=== PATIENT | female | born 1985 | race Caucasian/White ===

== ENCOUNTER 2023-11-10 02:04 | Emergency (ER) | payer SELFPAY ==
[2023-11-10 03:26] LABS: Absolute Lymphocytes (CBC) 0.6 K/uL (0.7-4.9); Absolute Monocytes 0.4 K/uL (0.1-1.3); Absolute Neutrophil 2.8 K/uL (1.8-8.0); Basophils % 0.7 % (0-1.3); Hematocrit 36.1 % (36.0-45.0); Hemoglobin 11.6 g/dL (12.0-15.0); MCH 25.6 pg (27.0-35.0); MCHC 32.1 g/dL (32.0-36.0); MCV 79.7 fL (80-100); Monocytes % 9.8 % (3.3-12.3); Neutrophils % 73.5 % (41.7-73.7); Platelets 317 thou/uL (152-406); RBC Red Blood Cell Count 4.53 M/uL (3.86-4.86); Red Cell Distribution Width 18.2 % (12.1-15.2)
[2023-11-10] MEDS ORDERED: LIDOCAINE 1% 20 ML MDV ONE (03:37)
[2023-11-10] MEDS ORDERED: THIAMINE 200 MG/2 ML INJ ONE (03:37)
[2023-11-10] MEDS ORDERED: MULTIVITAMINS 10 ML VIAL (INJ) IV ONE (03:37)
[2023-11-10] MEDS ORDERED: FOLIC ACID 5 MG/ML VIAL ONE (03:38)
[2023-11-10] MEDS ORDERED: NA CHLORIDE 0.9% 1,000 ML ONE (03:39)
[2023-11-10 03:45] LABS: Albumin 3.8 g/dL (3.4-5.0); Albumin/Globulin Ratio 0.9 (1.1-1.8); Bilirubin Total 0.3 mg/dL (0.2-1.0); Globulin 4.3 g/dL (2.3-3.5); Protein, Total 8.1 g/dL (6.4-8.2)
[2023-11-10 04:32] LABS: Specific Gravity 1.025 (1.005-1.030)
[2023-11-10 04:34] LABS: Specific Gravity 1.025 (1.005-1.030); Sqamous Epithelial <5 /HPF (None Seen); Urine Bacteria None Seen /HPF (<20); Urine Bilirubin NEGATIVE (Negative); Urine Blood 2+ (Negative); Urine Clarity Clear (Clear); Urine Color Light-Yellow (Yellow); Urine Culture Reflex Order NOT NEEDED; Urine Glucose TRACE (Negative); Urine Ketones 3+ (Negative); Urine Microscopic Reflex YN ORDER UMIC; Urine Mucus Slight /HPF (None Seen); Urine Nitrite NEGATIVE (Negative); Urine Protein 2+ (Negative); Urine Urobilinogen Normal (Normal); Urine WBC <5 /HPF (<5)
[2023-11-10 04:43] LABS: Barbiturates NEGATIVE (NEGATIVE); Benzodiazepines NEGATIVE (NEGATIVE); Cocaine NEGATIVE (NEGATIVE); METHAMPHETAM NEGATIVE (NEGATIVE); Methadone NEGATIVE (NEGATIVE); Opiates NEGATIVE (NEGATIVE); Phencyclidine NEGATIVE (NEGATIVE); THC Cannibis NEGATIVE (NEGATIVE)
--- NOTE | 2023-11-10 05:38 | ER ---
[facility] Name: Ana Lilia Felix Age: 38 yrs Sex: Female : 1985 Arrival Date: 11/10/2023 Time: 02:04 Bed 18 Private MD: Diagnosis: Laceration without foreign body of left hand, initial encounter;Abnormal uterine and vaginal bleeding, unspecified;Dysfunctional uterine bleeding, alcohol intoxication, insomnia, acute fall with laceration of the left hand. Presentation: 11/09 02:32 Chief complaint: Patient states: I have been heavily drinking for more than a month. A jb4 bottle of wine a day. I have been having vaginal bleeding for over a month and I think I had a miscarriage. I fell through a glass table tonight cutting my left wrist. Coronavirus screen: At this time, the client does not indicate any symptoms associated with coronavirus-19. Ebola Screen: No symptoms or risks identified at this time. Complicating Factors: There are no complicating factors for this patient. Initial Sepsis Screen: Does the patient meet any 2 criteria? No. Patient's initial sepsis screen is negative. Does the patient have a suspected source of infection? No. Patient's initial sepsis screen is negative. Risk Assessment: Do you want to hurt yourself or someone else? Patient reports no desire to harm self or others. Onset of symptoms was November 10, 2023. Transition of care: patient was not received from another setting of care. 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 - Infectious Disease History:: Denies. - Social history:: Smoking status: Patient denies any tobacco usage or history of. Patient uses alcohol, on a daily basis. Bottle of wine a day.. - Family history:: not pertinent. Screenin:30 Abuse screen: Denies threats or abuse. Denies injuries from another. Nutritional ha1 screening: No deficits noted. Tuberculosis screening: No symptoms or risk factors identified. 02:30 [facility] ED Fall Risk Assessment (Adult) History of falling in the last 3 months, ha1 including since admission Yes- single mechanical fall (1 pt) Confusion or Disorientation No (0 pts) Intoxicated or Sedated Yes (3 pts) Impaired Gait No (0 pts) Mobility Assist Device Used No (0 pt) Altered Elimination Yes (1 pt) Score/Fall Risk Level 3 or more points = High Risk Oriented to surroundings, Maintained a safe environment, Educated pt \T\ family on fall prevention, incl call for assistance when getting out of bed, Hourly rounding (assess needs \T\ fall precautionary measures) done. Assessment: 02:18 General: Appears comfortable, Behavior is calm, cooperative. Pain: Denies pain. Neuro: ha1 Level of Consciousness is awake, alert, obeys commands, Oriented to person, place, time, situation. Cardiovascular: Capillary refill < 3 seconds Patient's skin is warm and dry. Respiratory: Airway is patent Respiratory effort is even, unlabored, Respiratory pattern is regular, symmetrical. GI: No signs and/or symptoms were reported involving the gastrointestinal system. : Reports vaginal bleeding that is. Musculoskeletal: Circulation, motion, and sensation intact. Range of motion: intact in all extremities. Injury Description: Laceration sustained to medial aspect of left hand is 2.6 to 7.5 cm long, bleeding moderately, is bleeding a small amount. 03:25 Reassessment: Patient and/or family updated on plan of care and expected duration. Pain ha1 level reassessed. Patient is alert, oriented x 3, equal unlabored respirations, skin warm/dry/pink. 04:24 Reassessment: Patient and/or family updated on plan of care and expected duration. Pain ha1 level reassessed. Patient is alert, oriented x 3, equal unlabored respirations, skin warm/dry/pink. Vital Signs: 02:30 BP 146 / 100; Pulse 107; Resp 16 S; Pulse Ox 97% on R/A; ha1 02:32 BP 157 / 92; Pulse 110; Resp 16; Temp 98.9(O); Pulse Ox 98% on R/A; Weight 74.84 kg; jb4 Height 5 ft. 7 in. (R); 03:25 BP 162 / 98; Pulse 97; Resp 16 S; Pulse Ox 97% on R/A; ha1 04:15 BP 161 / 88; Pulse 100; Resp 16 S; Pulse Ox 97% on R/A; ha1 06:15 BP 136 / 81; Pulse 101; Resp 18; Temp 98.8; Pulse Ox 99% ; pc2 02:32 Body Mass Index 25.84 (74.84 kg, 170.18 cm) jb4 [place] Coma Score: 06:11 Eye Response: spontaneous(4). Motor Response: obeys commands(6). Verbal Response: sp4 oriented(5). Total: 15. ED Course: 02:12 Patient arrived in ED. gm2 02:18 Patient has correct armband on for positive identification. Bed in low position. Call ha1 light in reach. Side rails up X 1. Adult w/ patient. 02:25 Franko Bal MD is Attending Physician. sp4 02:36 Triage completed. jb4 02:36 Arm band placed on right wrist. jb4 02:40 Inserted saline lock: 22 gauge in left wrist, using aseptic technique. Blood collected. ha1 03:19 Lisbeth Correia RN is Primary Nurse. ha1 03:20 CBC with Diff Sent. ha1 03:20 CMP Sent. ha1 03:20 Lipase Sent. ha1 03:35 US Pelvis Complete In Process Unspecified. EDMS 04:34 Report received from BNE Bob. pc2 06:15 No provider procedures requiring assistance completed. IV discontinued, intact, pc2 bleeding controlled, No redness/swelling at site. Pressure dressing applied. 06:16 Provided Education on: f/u instructions and medications. pc2 Administered Medications: 03:53 Drug: Banana Bag - (Multivitamin IV 1 amp, NS 0.9% IV 1000 ml, Thiamine IV 100 mg, ha1 foLIC Acid IVPB 1 mg) IV at calculated rate once Route: IV; Rate: calculated rate; Site: left wrist; 06:10 Follow up: IV Status: Completed infusion; IV Intake: 1000ml pc2 03:54 Not Given (not in inventory ): boostrix tdap0.5 ml IM once; as a single dose ha1 05:30 Drug: Lidocaine Infiltration (1 %) 20 ml 20 ml Infiltration once; to bedside {Note: pc2 administered by MD for lac repair.} Volume: 20 ml; Route: Infiltration; 05:55 Follow up: Response: No adverse reaction pc2 05:48 Drug: Boostrix Tdap IM 0.5 ml IM once; as a single dose Route: IM; Site: right deltoid; pc2 06:04 Follow up: Response: No adverse reaction pc2 Medication: 06:13 Vaccine Information Statement (VIS) provided today. Questions and/or concerns pc2 addressed. VIS edition date: November 10, 2023. Intake: 06:10 IV: 1000ml; Total: 1000ml. pc2 Outcome: 05:37 Discharge ordered by . brannon 06:15 Discharged to home with family, pc2 06:15 Condition: stable 06:15 Discharge instructions given to patient, Instructed on discharge instructions, no drinking with medication, medication usage, wound care, Demonstrated understanding of instructions, follow-up care, medications, wound care, Prescriptions given X 2, 06:21 Patient left the ED. pc2 Signatures: Dispatcher [employer] EDMS Ck Vasquez, RN RN jb4 Lisbeth Correia RN RN Franko Jean MD MD sp4 Maureen Ribeiro gm2 Chacha estrada, RN RN pc2
--- NOTE | 2023-11-10 05:38 | EDPHYS ---
Physician Documentation [facility] Name: Ana Lilia Felix Age: 38 yrs Sex: Female : 1985 Arrival Date: 11/10/2023 Time: 02:04 Bed 18 Private MD: ED Physician Franko Bal HPI: 11/09 02:25 This 38 yrs old Female presents to ER via Unassigned with complaints of sp4 Laceration To Hand, ETOH Abuse, Vaginal Bleeding. 06:11 38-year-old female presents with acute alcohol intoxication and emotional upset also sp4 she fell into the glass table causing mild to moderate laceration to the left hand hypothenar eminence . Patient additionally reports that she has had persistent vaginal bleeding for the past 4 to 5 weeks. Patient states she has problems with insomnia and drinks to fall to sleep.. 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 - Infectious Disease History:: Denies. - Social history:: Smoking status: Patient denies any tobacco usage or history of. Patient uses alcohol, on a daily basis. Bottle of wine a day.. - Family history:: not pertinent. ROS: 06:11 Constitutional: Negative for fever, chills, and weight loss, positive alcohol sp4 intoxication , positive left hand laceration , positive vaginal bleeding 06:11 All other systems are negative, Exam: 06:11 Constitutional: This is a well developed, well nourished patient who is awake, alert, sp4 intoxicated female, emotionally upset, left hand hypothenar eminence jagged laceration. Head/Face: Normocephalic, atraumatic. Eyes: Pupils equal round and reactive to light, extra-ocular motions intact. Lids and lashes normal. Conjunctiva and sclera are not injected. Cornea within normal limits. Periorbital areas with no swelling, redness, or edema. ENT: Nares patent. No nasal discharge, no septal abnormalities noted. Tympanic membranes are normal and external auditory canals are clear. Oropharynx with no redness, swelling, or masses, exudates, or evidence of obstruction, uvula midline. Mucous membranes moist. Neck: Trachea midline, no thyromegaly or masses palpated, and no cervical lymphadenopathy. Supple, full range of motion without nuchal rigidity, or vertebral point tenderness. Chest/axilla: Normal chest wall appearance and motion. Nontender with no deformity. No lesions are appreciated. Cardiovascular: Regular rate and rhythm with a normal S1 and S2. No gallops, murmurs, or rubs. Normal PMI, no JVD. No pulse deficits. Respiratory: Lungs have equal breath sounds bilaterally, clear to auscultation and percussion. No rales, rhonchi or wheezes noted. No increased work of breathing, no retractions or nasal flaring. Abdomen/GI: Soft, with normal bowel sounds. No distension or tympany. No guarding or rebound. No evidence of tenderness throughout. Back: No spinal tenderness. No costovertebral tenderness. Skin: Warm, dry with normal turgor. Normal color with no rashes, no lesions, and no evidence of cellulitis. MS/ Extremity: Pulses equal, no cyanosis. Neurovascular intact. Full, normal range of motion. Neuro: Awake and alert, GCS 15, oriented to person, place, time, and situation. Cranial nerves II-XII grossly intact. Motor strength 5/5 in all extremities. Sensory grossly intact. Psych: Awake, alert, with orientation to person, place and time. Emotionally upset, intoxicated, tearful on exam. Vital Signs: 02:30 BP 146 / 100; Pulse 107; Resp 16 S; Pulse Ox 97% on R/A; ha1 02:32 BP 157 / 92; Pulse 110; Resp 16; Temp 98.9(O); Pulse Ox 98% on R/A; Weight 74.84 kg; jb4 Height 5 ft. 7 in. (R); 03:25 BP 162 / 98; Pulse 97; Resp 16 S; Pulse Ox 97% on R/A; ha1 04:15 BP 161 / 88; Pulse 100; Resp 16 S; Pulse Ox 97% on R/A; ha1 06:15 BP 136 / 81; Pulse 101; Resp 18; Temp 98.8; Pulse Ox 99% ; pc2 02:32 Body Mass Index 25.84 (74.84 kg, 170.18 cm) jb4 [place] Coma Score: 06:11 Eye Response: spontaneous(4). Motor Response: obeys commands(6). Verbal Response: sp4 oriented(5). Total: 15. Laceration: 05:33 Wound Repair of 4cm ( 1.6in ) subcutaneous laceration to medial aspect of left hand. sp4 Irregularly shaped.. jagged laceration secondary to irregular glass shards . Distal neuro/vascular/tendon intact. Anesthesia: Wound infiltrated with 10 mls of 1% lidocaine. Wound prep: Moderate cleansing by me, Copious irrigation. Skin closed with 10 5-0 Prolene using interrupted sutures and sterile technique. Dressed with 4x4's, Kerlix, non-adherent dressing. Patient tolerated well. MDM: 02:46 Patient medically screened. sp4 04:47 ED course: EXAMINATION: US PELVIS INDICATION: Female, 38 years old, persistent bleeding sp4 COMPARISON(S): None. TECHNIQUE: Transabdominal ultrasound of the pelvis. FINDINGS: UTERUS: Measures 8.4 x 4.6 x 5 cm. Homogeneous myometrium without discrete lesion. Endometrial stripe is not well visualized. RIGHT OVARY: Measures 3.8 x 2.5 x 2.7 cm, with volume of 13 mL. Normal morphology. Normal color and spectral Doppler flow. LEFT OVARY: Measures 3.4 x 2.3 x 2.3 cm, with volume of 9 mL. Normal morphology. Normal color and spectral Doppler flow. FREE FLUID: No visualized free fluid. IMPRESSION: 1. Nonvisualization of the endometrium which may be due to limited transabdominal technique. Follow-up transvaginal pelvic ultrasound should be considered for further characterization if there is sufficient clinical concern. 2. Mild asymmetric enlargement of the right ovary without appreciable lesion. . 05:33 Differential diagnosis: superficial laceration, Alcohol intoxication. Data reviewed: sp4 vital signs, nurses notes, lab test result(s), radiologic studies, ultrasound. 11/09 02:45 Order name: CBC with Diff; Complete Time: 03:47 sp4 11/09 02:45 Order name: CMP; Complete Time: 04:44 sp4 11/09 02:45 Order name: Lipase; Complete Time: 04:44 sp4 11/09 02:45 Order name: Test, Urine; Complete Time: 04:44 sp4 11/09 02:45 Order name: Urinalysis w/ reflexes; Complete Time: 04:44 sp4 11/09 02:46 Order name: Alcohol Level; Complete Time: 04:44 sp4 11/09 02:46 Order name: Urine Drug Screen; Complete Time: 04:44 sp4 11/09 02:46 Order name: US Pelvis Complete sp4 11/09 02:45 Order name: Dressing - Wound; Complete Time: 03:43 sp4 11/09 02:45 Order name: Gloves, Sterile; Complete Time: 03:43 sp4 11/09 02:45 Order name: Setup Suture Tray; Complete Time: 03:43 sp4 11/09 02:45 Order name: IV Saline Lock; Complete Time: 03:20 sp4 11/09 02:45 Order name: Labs collected and sent; Complete Time: 03:20 sp4 Administered Medications: 03:53 Drug: Banana Bag - (Multivitamin IV 1 amp, NS 0.9% IV 1000 ml, Thiamine IV 100 mg, ha1 foLIC Acid IVPB 1 mg) IV at calculated rate once Route: IV; Rate: calculated rate; Site: left wrist; 06:10 Follow up: IV Status: Completed infusion; IV Intake: 1000ml pc2 03:54 Not Given (not in inventory ): boostrix tdap0.5 ml IM once; as a single dose ha1 05:30 Drug: Lidocaine Infiltration (1 %) 20 ml 20 ml Infiltration once; to bedside {Note: pc2 administered by MD for lac repair.} Volume: 20 ml; Route: Infiltration; 05:55 Follow up: Response: No adverse reaction pc2 05:48 Drug: Boostrix Tdap IM 0.5 ml IM once; as a single dose Route: IM; Site: right deltoid; pc2 06:04 Follow up: Response: No adverse reaction pc2 Disposition Summary: 11/10/23 05:37 Discharge Ordered Notes: Location: Home sp4 Problem: new sp4 Symptoms: have improved sp4 Condition: Stable sp4 Diagnosis - Laceration without foreign body of left hand, initial encounter sp4 - Abnormal uterine and vaginal bleeding, unspecified sp4 - Dysfunctional uterine bleeding, alcohol intoxication, insomnia, acute fall with sp4 laceration of the left hand. Followup: sp4 - With: Private Physician - When: 7 - 10 days - Reason: Recheck today's complaints Discharge Instructions: - Discharge Summary Sheet sp4 - Laceration Care, Adult sp4 Forms: - Patient Portal Instructions sp4 Prescriptions: - Sprintec (28) 0.25-35 mg-mcg Oral tablet - take 1 tablet ORAL route daily; 1 Pack; Refills: 0, Product Selection Permitted sp4 - chlordiazepoxide HCl 25 mg Oral capsule - take 1 capsule ORAL route every 8 hours Take one tab 3 times daily for 5 days sp4 , then one tab twice daily for 5 days, then one tab daily for 5 days; 30 capsule; Refills: 0, Product Selection Permitted Signatures: Dispatcher [employer] EDMS Ck Vasquez, RN RN jb4 Lisbeth Correia RN RN ha1 Franko Bal MD MD sp4 Chacha estrada, RN RN pc2 Corrections: (The following items were deleted from the chart) 02:45 02:45 CBC+H.LAB.BRZ ordered. EDMS EDMS 02:45 02:45 COMPREHENSIVE METABOLIC PANEL+C.LAB.BRZ ordered. EDMS EDMS 02:45 02:45 LIPASE+C.LAB.BRZ ordered. EDMS EDMS 02:45 02:45 Test, Urine+UC.LAB.BRZ ordered. EDMS EDMS 02:45 02:45 Urinalysis+U.LAB.BRZ ordered. EDMS EDMS 02:46 02:46 ETHANOL+C.LAB.BRZ ordered. EDMS EDMS 02:46 02:46 URINE DRUG SCREEN+UC.LAB.BRZ ordered. EDMS EDMS 02:46 02:46 Pelvis Complete+US.RAD.BRZ ordered. EDMS EDMS
[2023-11-10] MEDS ORDERED: TDAP (DIPHTH,PERTUSS(ACELL),TET VAC) 0.5 ML VIAL IMVAC ONE (05:44)
[2023-11-10 06:34] VITALS: BP 136/81; TEMP 98.8; O2SAT 99
--- NOTE | 2023-11-10 09:10 | RAD REPORT ---
EXAM DESCRIPTION: US - Pelvis Complete - 11/10/2023 3:34 am CLINICAL HISTORY: Female, 38 years old, persistent bleeding COMPARISON: None. TECHNIQUE: Transabdominal ultrasound of the pelvis. FINDINGS: UTERUS: Measures 8.4 x 4.6 x 5 cm. Homogeneous myometrium without discrete lesion. Endomet rial stripe is not well visualized. RIGHT OVARY: Measures 3.8 x 2.5 x 2.7 cm, with volume of 13 mL. Normal morphology. Normal color and s pectral Doppler flow. LEFT OVARY: Measures 3.4 x 2.3 x 2.3 cm, with volume of 9 mL. Normal morphology. Normal color and spe ctral Doppler flow. FREE FLUID: No visualized free fluid. IMPRESSION: 1. Nonvisualization of the endometrium which may be due to limited transabdominal tech nique. Follow-up transvaginal pelvic ultrasound should be considered for further characterization if there is sufficient clinical concern. 2. Mild asymmetric enlargement of the right ovary without appreciable lesion. Electronically signed by: Homer Barbour MD 11/10/2023 03:49 AM CDT Due to temporary technical issues with the PACS/Fluency reporting system, reports are being signed by the in house radiologists without review as a courtesy to insure prompt reporting. The interpreting radiologist is fully responsible for the content of the report.
== END 2023-11-10 06:21 | disposition home or self-care (01) ==
LOC: ER 02:04
PROC: 0HQGXZZ Repair Left Hand Skin, External Approach (ICD-10-PCS; principal; 2023-11-10)
DX: S61.412A Laceration without foreign body of left hand, initial encounter (principal); N93.8 Other specified abnormal uterine and vaginal bleeding; F10.129 Alcohol abuse with intoxication, unspecified; G47.00 Insomnia, unspecified; W18.30XA Fall on same level, unspecified, initial encounter
CPT/HCPCS: 12001; 36415; 76856; 80053; 80307; 81001; 81025; 82077; 83690; 85025; 96365; 96366; 96372; 99284; J2001; J3411; J7030